=== PATIENT | female | born 1980 | race Caucasian/White ===

== ENCOUNTER 2017-07-13 13:21 | Emergency (ER) | payer OTHER, BC ==
[~2017-07-13] VITALS: Ht 167.6 cm; Wt 75.4 kg
[~2017-07-13 13:21] MED LIST: CLR10 PO; CPXI SQ; MOME50SP5; MULT-513 PO
[2017-07-13 13:26] VITALS: TEMP 36.9; Ht 167.6 cm; Wt 75.4 kg
[2017-07-13] MEDS ORDERED: IBUP-103 PO (14:06)
[2017-07-13] MEDS ORDERED: ACET-1256 PO (14:06)
[2017-07-13] MEDS ORDERED: CHOL1000 PO (14:06)
[2017-07-13] MEDS ORDERED: PRLSR20 PO (14:06)
[2017-07-13] MEDS ORDERED: CETI10TA84 PO (14:06)
[2017-07-13] MEDS ORDERED: BUDE180I INH (14:06)
[2017-07-13] MEDS ORDERED: ROPI0.5T15 PO (14:06)
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
[2017-07-13 15:32] VITALS: BP 121/73; PULSE 86; O2SAT 96
== END 2017-07-13 15:36 | disposition home or self-care (01) ==
LOC: C.EDB 13:22 → C.EDD 15:36
DX: S09.90XA Unspecified injury of head, initial encounter (principal); V43.62XA Car passenger injured in collision with other type car in traffic accident, initial encounter; Y92.410 Unspecified street and highway as the place of occurrence of the external cause; J45.909 Unspecified asthma, uncomplicated; G35 Multiple sclerosis; Z79.899 Other long term (current) drug therapy